=== PATIENT | female | born 1945 | race Caucasian/White ===

== ENCOUNTER 2020-09-16 10:29 | Observation (INO) | payer OTHER, SELFPAY ==
[2020-09-16] VITALS (8 sets, daily range): BP systolic 104–170; BP diastolic 39–65; PULSE 54–67; RESP 16–21; TEMP 36.5–36.7; O2SAT 93–99; BMI 25.7; BMI 24.9
--- NOTE | ~2020-09-16 | CT_ITS ---
EXAMINATION: CT brain wo con EXAM DATE: 09/16/2020 11:21 INDICATION: Syncope. Hypotensive. TECHNIQUE: Spiral CT of the head was performed without contrast. Axial, coronal and sagittal images were reviewed. The dose-length product (DLP) for this examination was 605.33 mGy-cm. The exposure w as tailored according to patient size, and iterative reconstruction (ASIR) was used as additional dos e reduction technique. Comparison is made to prior examination from 09/15/2016. FINDINGS: Compared to 2017, both of the superior ophthalmic veins have dilated from being about 1 mm in caliber to about 5 mm in caliber (typically upper limits of normal considered less than 3 mm). Non specific, but could indicate increased pressure from carotid cavernous fistula. There is no acute intraparenchymal hemorrhage. No evidence of intraparenchymal brain mass lesion. N o evidence of acute infarction. Please note that initial head CT has limited sensitivity for small o r acute infarctions. There is mild periventricular and subcortical hypodensity, nonspecific but proba mariah related to small vessel ischemic disease. There is mild prominence of the sulci and ventricles related to cerebral atrophy. There is intracranial carotid arteriosclerosis. There are no extra-ax ial collections. There is no mass effect or midline shift. Patient has had bilateral ocular lens yo rgery. Soft tissue is unremarkable. The visualized sinuses and mastoid air cells are well aerated. IMPRESSION: 1. No acute intracranial findings. 2. Chronic age related findings. 3. Interval development of enlarged superior ophthalmic veins bilaterally, raises possibility of car otid-cavernous fistula, probably more likely indirect type. Diagnosis would likely require catheter-b ased Cerebral angiogram. Reviewed, dictated and finalized at location A. IMPRESSION: 1. No acute intracranial findings. 2. Chronic age related findings. 3. Interval development of enlarged superior ophthalmic veins bilaterally, serrano ses possibility of carotid-cavernous fistula, probably more likely indirect typ e. Diagnosis would likely require catheter-based Cerebral angiogram.
--- NOTE | ~2020-09-16 | US_ITS ---
EXAMINATION: US carotid duplex BI DATE: 09/16/2020 17:58 INDICATION: Transient alteration of awareness TECHNIQUE: Grayscale, color Doppler, and pulsed Doppler images of the cervical carotid arteries were obtained. The degree of vessel stenosis is placed in one of the following categories: normal, <50%, 5 0-69%, >=70% but less than near-occlusion, near-occlusion, or total occlusion. Note that percent sten osis relative to normal distal artery lumen diameter is indirectly measured from velocity measurement s as described by Eamon, et al. Radiology 2003; 229:340-346. COMPARISON: None. FINDINGS: RIGHT: The right common carotid artery (CCA) peak systolic velocity (PSV) is 82 cm/s. The right internal car otid artery (ICA) PSV is 58 cm/s. The right ICA end-diastolic velocity (EDV) is 14 cm/s. The right IC A/CCA PSV ratio is 0.7. Grayscale and color Doppler images yield an estimate of less than 50% diamete r reduction from plaque in the ICA. The external carotid artery (ECA) PSV is 99 cm/s. There is antegr opal flow in the right vertebral artery. LEFT: The left CCA PSV is 80 cm/s. The left ICA PSV is 72 cm/s. The left ICA EDV is 16 cm/s. The left ICA/C CA PSV ratio is 0.9. Grayscale and color Doppler images yield an estimate of less than 50% diameter r eduction from plaque in the ICA. The ECA PSV is 75 cm/s. There is antegrade flow in the left vertebra l artery. IMPRESSION: 1. <50% stenosis in the right internal carotid artery. 2. <50% stenosis in the left internal carotid artery. Reviewed, dictated and finalized at location A.
--- NOTE | ~2020-09-16 | XR_ITS ---
EXAMINATION: XR chest 1V portable DATE: 09/16/2020 11:52 INDICATION: Syncope. Vomiting. TECHNIQUE: frontal view of the chest was obtained. COMPARISON: Chest CT dated 09/16/2020 FINDINGS: Mild left basilar atelectasis. No other airspace opacities, pulmonary edema, pleural effusion or pneu mothorax. The cardiomediastinal silhouette is normal. Visualized bones and soft tissues are unremarka ble. Prominent costochondral calcifications. IMPRESSION: 1. Mild left basilar atelectasis. Reviewed, dictated and finalized at location B.
--- NOTE | ~2020-09-16 | MR_ITS ---
EXAMINATION: MR brain/brain stem wo/w con DATE: 09/16/2020 17:46 INDICATION: Dizziness. TECHNIQUE: Magnetic resonance imaging (MRI) of the brain and brainstem was performed without and with 10 mL MultiHance intravenous contrast. Sequences included sagittal and axial T1-weighted FSE, axial diffusion-weighted FS EPI, axial T2*-weighted GRE, axial T2-weighted FLAIR Propeller, and axial T2-we ighted Propeller. Postcontrast sequences included axial and coronal T1-weighted FSE. Apparent diffusi on coefficient (ADC) maps were created. COMPARISON: Brain MRI 09/15/2016, head CT 09/16/2020 FINDINGS: There are scattered areas of nonspecific increased T2-weighted signal intensity in the cere bral white matter. There is no intracranial hemorrhage, acute infarction, or abnormal intracranial ma ss lesion. The ventricles are normal in size. There is a small mucous retention cyst in left maxillar y sinus. The mastoid air cells are normal. There are likely changes of ocular lens replacement surger ies. IMPRESSION: 1. Stable mild nonspecific cerebral white matter disease, which likely represents chronic small vesse l ischemic disease. Reviewed, dictated and finalized at location A. IMPRESSION: 1. Stable mild nonspecific cerebral white matter disease, which likely represen ts chronic small vessel ischemic disease.
--- NOTE | ~2020-09-16 | CT_ITS ---
EXAMINATION: CTA chest PE protocol DATE: 09/16/2020 11:21 INDICATION: Syncope. Hypotension. TECHNIQUE: Computed tomography angiography (CTA) of the chest was performed with 100 mL Omnipaque-350 intravenous contrast timed to evaluate the pulmonary arteries. Coronal maximum intensity projection 3D-reconstructions were created by the technologist. Automated exposure control and iterative reconst ruction technique were employed. The dose-length product was 314.29 mGy-cm. COMPARISON: None. FINDINGS: There is mild atelectasis bilaterally. Calcified right lung nodules and calcified right hil ar lymph nodes are consistent with old granulomatous disease. No pleural effusion. The heart size is normal. There are coronary artery calcifications. No pericardial effusion. There is no pulmonary embo willow. There are cysts in the liver measuring up to 4.3 cm. Calcifications in the liver and spleen are consistent with old granulomatous disease. There are hemangiomas in T2, T6, T7, and T10 vertebral bod ies. IMPRESSION: 1. No pulmonary embolus. Reviewed, dictated and finalized at location A. IMPRESSION: 1. No pulmonary embolus.
--- NOTE | 2020-09-16 10:35 | ED.SYNCOPE ---
HPI - Syncope General Chief Complaint: Syncope Stated Complaint: syncope Time Seen by Provider: 09/16/20 10:31 Source: EMS Mode of arrival: EMS Limitations: altered mental status History of Present Illness HPI narrative: Patient is a 75-year-old female, who presents for evaluation of witnessed syncopal event. Patient was ambulating facility when she was noted by witnesses to pass out and lose consciousness. Patient reportedly was diaphoretic and unwell appearing when EMS arrived. Fingerstick glucose appropriate greater than 110. Patient was noted to be mildly bradycardic, mildly hypotensive and somewhat confused. No seizure activity was noted. In route, patient had another syncopal event while on the stretcher in which she was unconscious and unresponsive for approximately 30 seconds. Again, no seizure activity was noted by EMS personnel. Patient was given IV fluids and transported to our facility. Here patient is awake, vomiting. She is alert to person and place. Is unable to provide any other details. She is moving all extremities on command. Related Data Allergies Allergy/AdvReac Type Severity Reaction Status Date / Time nitrofurantoin Allergy Severe SHOCK Verified 02/19/20 13:05 Sulfa (Sulfonamide Allergy Unknown Unknown Verified 02/19/20 13:05 Antibiotics) Review of Systems Review of Systems: ROS unobtainable: Yes unobtainable due to mental status PMFSH Past Medical History Medical History (Updated 09/16/20 @ 13:43 by Trinity Quinn MD) Cognitive decline Dyslipidemia Hypovitaminosis D IFG (impaired fasting glucose) Onychomycosis Seasonal allergies Family History Family History (Updated 12/22/18 @ 07:42 by DOCTOR UNKNOWN) Father Family history of heart disease in male family member before age 55 Patient's father is , Onset Age: 72 Mother Patient's mother is , Onset Age: 92 Social History Social History Smoking status: Never smoker Alcohol intake: never Exam Narrative: Exam Narrative: GENERAL: Awake, alert, confused HEAD: Normocephalic, atraumatic. EYES: 2+ PERRLA and EOMI with horizontal nystagmus, non direction changing ENT: Nares clear, no rhinorrhea or epistaxis. Mucous membranes dry NECK: Supple. CHEST: No respiratory distress, breathing even and non labored HEART:Bradycardic rate, sinus rhythm ABDOMEN:Non distended, non tender EXTREMITIES: Normal range of motion. No edema. SKIN: Pale, cool, dry, no rash. NEURO:No focal deficits. Alert and oriented x3, EOMs intact without nystagmus. No facial droop/asymmetry noted bilaterally. Grimace intact. Intact sensation in face. Shoulder shrug intact. Strength 5/5 bilateral upper extremities. Strength 5/5 bilateral lower extremities. Cannot complete heel to dutton or finger to nose testing at this time. Course Vital Signs Vital signs: Vital Signs Pulse Rate 54 L 09/16/20 10:37 Respiratory Rate 21 H 09/16/20 10:37 Blood Pressure 115/56 L 09/16/20 10:37 Pulse Oximetry 93 09/16/20 10:37 Pulse Rate 67 09/16/20 13:15 Respiratory Rate 16 09/16/20 13:15 Blood Pressure 170/65 H 09/16/20 13:15 Pulse Oximetry 97 09/16/20 13:15 MDM - Syncope MDM Narrative Medical decision making narrative: Patient presented for evaluation of syncopal event. At the time of assessment, patient is vomiting, able to state her name that she is at the hospital, otherwise is a bit lethargic and slightly confused. She is denying any pain. She is reporting some dizziness. Laboratory results are reassuring. Imaging is notable for an incidental finding on CT head which I did speak with Dr. Carlson about. This would not be the cause of any acute syncope there is not appear to be any aneurysm not, no intracranial hemorrhage. This is something that the patient will need to follow-up with neuroradiology regarding as an outpatient. Considered posterior stroke ronald
--- NOTE | 2020-09-16 10:52 | PC.NURSE ---
EDP at bedside, vorb 4mg Zofran IVP, coroner/medical examiner.
--- NOTE | 2020-09-16 10:55 | ECG_ITS ---
Measurements Intervals [place] Rate: 58 P: 61 [place]: 147 QRS: 26 QRSD: 101 T: 74 QT: 399 QTc: 392 Interpretive Statements SINUS BRADYCARDIA ATRIAL PREMATURE COMPLEXES POSSIBLE LEFT ATRIAL ENLARGEMENT INCOMPLETE RIGHT BUNDLE BRANCH BLOCK BORDERLINE ST-T WAVE ABNORMALITY- HIGH LATERAL LEADS BASELINE ARTIFACT- II, III, AVR, AVF, V1, V3-V6 BORDERLINE ECG Electronically Signed On 09-16-2020 11:01:13 CDT by Kong Nance D.O.
--- NOTE | 2020-09-16 11:00 | PC.NURSE ---
Pt taken to CT on monitor
[2020-09-16 11:16] LABS: Estimated Glomerular Filt Rate > 60
[2020-09-16 11:17] LABS: Basophils Percent Auto 0.3 % (0.2-1.2); Eosinophils Absolute Auto 0.1 K/mm3 (0-0.3); Eosinophils Percent Auto 0.8 % (0-4.4); Hematocrit 37.6 % (37.0-47.0); Hemoglobin 12.4 g/dL (12.0-15.0); Immature Granulocyte Absolute 0.01 K/mm3 (0.00-0.031); Immature Granulocyte Percent A 0.2 % (0-0.5); Lymphocytes Percent Auto 42.4 % (18.3-44.2); Mean Corpuscular Hemoglobin 30.8 pg (26-34); Mean Corpuscular Volume 93.5 fl (80-100); Mean Platelet Volume 10.5 fl (7.4-10.4); Monocytes Absolute Auto 0.5 K/mm3 (0.1-0.6); Neutrophils Absolute Auto 3.2 K/mm3 (1.3-6.7); Neutrophils Percent Auto 48.3 % (45.5-73.1); Platelet Count Result 165 k/mm3 (150-375); Red Blood Count 4.02 M/mm3 (4.2-5.4); Red Cell Distribution Width 12.6 % (11.5-14.5); White Blood Count 6.6 K/mm3 (4.5-10.0)
--- NOTE | 2020-09-16 11:18 | PCRCNOTE ---
PT N/A AT 1100 AND 1120 PT IS GONE FOR TESTING XRAY AND CAT SCAN.ABG'S DELAYED
--- NOTE | 2020-09-16 11:20 | PC.NURSE ---
Pt returned from CT. Bedside Report given to NELLA Foreman
[2020-09-16 11:24] LABS: Lactic Acid Reflex 1.4 mmol/L (0.7-2.1)
[2020-09-16 11:24] LABS: Glucose Point of Care 114 (65-105)
[2020-09-16 11:26] LABS: Ammonia < 9 umol/L (9-30); Partial Thromboplastin Time 26.3 SECONDS (22.3-36.8)
[2020-09-16 11:28] LABS: D Dimer 0.33 ug/mL (<0.48)
[2020-09-16 11:28] LABS: Alveolar/Arterial O2 Gradient 34.9 mmHg; Base Excess ABG -4.3 mEq/l (+/-2.0); Carboxyhemoglobin 0.1 % THb (0-2.0); Fractional Inspired Oxygen 21 %; HCO3 ABG 22.6 mEq/l (22.0-26.0); Methemoglobin ABG 0.4 %THb (0-1.5); Oxygen Content ABG 14.6 %vol (16.0-22.0); Oxyhemoglobin 84.9 % THb (90.0-100.0); PCO2 ABG 48.8 mmHg (35.0-45.0); PO2 ABG 56.4 mmHg (80.0-100.0); PO2 FiO2 Ratio Arterial Blood 2.69 %; Reduced Hemoglobin 14.6 %THb (0-5.0); Total Hemoglobin 12.2 g/dL (12.0-18.0)
[2020-09-16 11:29] LABS: pH ABG 7.283 (7.350-7.450)
[2020-09-16 11:30] LABS: Device ROOM AIR; Modified Allen's Test Pass; Oxygen Saturation ABG 85.6 % (95.0-100.0); Site Drawn RIGHT RADIAL
[2020-09-16] MEDS: SODIUM CHLORIDE 0.9% IV 1,000 ML 999 ML IV CONT ×2 (11:31→12:01)
[2020-09-16] MEDS: ONDANSETRON INJ 4 MG/2 ML VIAL (11:31)
[2020-09-16 11:44] LABS: Alanine Aminotransferase 14 U/L (4-35); Albumin Level 3.5 g/dL (3.5-5.1); Alkaline Phosphatase 69 U/L (38-126); Anion Gap 3 mmol/L (8-16); Aspartate Amino Transferase 25 U/L (14-36); Bilirubin,Total 1.1 mg/dL (0.2-1.3); Blood Urea Nitrogen 20 mg/dL (7-17); CRP < 0.5 mg/dL (<1.0); Calcium 8.5 mg/dL (8.4-10.2); Carbon Dioxide 28 mmol/L (22-30); Chloride 107 mmol/L (98-107); Estimated Glomerular Filt Rate > 60; Glucose 134 mg/dL (65-105); Potassium 3.8 mmol/L (3.4-5.0); Sodium 138 mmol/L (137-145)
[2020-09-16 12:00] LABS: NT Pro B Type Natriuretic Pept 87 PG/ML (5-100); Troponin I < 0.012 ng/mL (0.000-0.034)
[2020-09-16] MEDS: METOCLOPRAMIDE HCL INJ 10 MG/2 ML VIAL IV PUSH (12:02)
[2020-09-16 12:17] LABS: Add Urine Microscopic? YES; Appearance Urine Cloudy (Clear); Bilirubin Urine Negative (Negative); Blood Urine Negative (Negative); Color Urine Straw (Yellow); Glucose Urine UA Negative (Negative); Ketones Urine Negative (Negative); Leukocyte Esterase Ur 2+ LEU/UL (Negative); Nitrate Urine Negative (Negative); Protein Urine Negative (Negative); RBC Urine 0-2 /hpf (0-2); Specific Grav Ur 1.025 (1.001-1.035); Squamous Epithelial Cell Urine Many /hpf (Few); Urobilinogen Urine Negative mg/dL (<2.0)
[2020-09-16] MEDS: MECLIZINE HCL 25 MG TABLET PO (12:26)
--- NOTE | 2020-09-16 14:08 | PC.NURSE ---
Called to give report on pt. Was told by Srinath that RN was in another pt room and would call me when she was done,
--- NOTE | 2020-09-16 14:30 | PM.IMHP ---
H&P: HPI History of Present Illness Date/Time: 09/16/20 14:30 Chief Complaint: Syncopal episode. Narrative: This is a fairly healthy 75-year-old female with dyslipidemia who presented to the emergency department earlier today via EMS for evaluation after a syncopal episode. She had her 2nd COVID vaccination yesterday and aside from a mild sore arm she has been doing well. 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 She did not have much to eat or drink this morning and later on in the morning she began feeling unwell with generalized malaise, profound weakness, tingling in her legs, and dizziness. She lay her head on the table as she thought she was going to pass out and reportedly lost consciousness for about 30 seconds. On EMS arrival she was pale and diaphoretic and she lost consciousness again for approximately 10 seconds when they transferred her to the stretcher. Upon waking she complained of nausea and had 2 episodes of emesis. She was noted to be bradycardic on the monitor with low blood pressures (exact numbers not documented) and a random glucose of 138. Her heart rate has been in the 50s to 60s with systolic blood pressures in the 90s to low 100s, which are pretty typical numbers for the patient. At the time of my evaluation she has a mild pressure-like headache in the frontal region but she has no other complaints. Specifically she denies having chest pain, pleuritic pain, or palpitations today. No shortness of breath. She has not taken any new medication recently. No dysuria or diarrhea. Of note her brain CT showed interval development of enlarged superior ophthalmic veins bilaterally, raises possibility of carotid-cavernous fistula, probably more likely indirect type. Upon speaking with Dr. Carlson (radiology), this would not be the cause of her syncope and he sees no evidence of aneurysm or bleed on imaging. He recommends outpatient neuro radiology follow-up for likely catheter-based Cerebral angiogram. Review of Systems Review of Systems: Narrative: Twelve systems were reviewed with pertinent positives and negatives as per HPI. No recent cold or flu symptoms. She received her 2nd COVID vaccination does yesterday morning at 09:00 and only has a mild sore arm. She has not had fever, chills, or sweats. No acute auditory or visual changes. She denies focal weakness and paresthesias though she did have some tingling in her legs prior to her 1st syncopal episode. No recent chest discomfort however she will have occasional self-limiting midsternal chest heaviness and has noticed periods of shortness of breath with exertion when she would normally not feel short of breath in those circumstances. Again she has not had any of these symptoms for quite some time. No orthopnea or PND. No lower extremity edema. No history of DVT or PE. Except as documented all other systems were reviewed and are negative. [facility] Past Medical History Medical History Cognitive decline Dyslipidemia Hypovitaminosis D Impaired fasting glucose Onychomycosis Seasonal allergies Surgical History Surgical History (Updated 09/17/20 @ 00:30 by Mary Kate Quesada PA-C) History of cataract extraction History of hysteroscopy With D and C and polypectomy, benign pathology. Family History Family History Father Family history of heart disease in male family member before age 55 Patient's father is , Onset Age: 72 Mother Patient's mother is , Onset Age: 92 Social History Social History Social History: Surrogate decision maker: Angel Orozco, . Code status: Full code. Smoking status: Never smoker Alcohol intake: current Drinks per week: 1 Substance use: never Ad
--- NOTE | 2020-09-16 17:57 | ADMGEN ---
This patient, Greta Orozco, was admitted to [facility] Surg Room 305-01 at 1448. Patient/family oriented to hospital policies and general routines including ID bracelet, bed and alarms, visiting hours, pain management, procedures, bathroom and other care routines, personal items, smoking policy, room service/diet, and visiting hours. Information on how to activate the Rapid Response Team has been discussed. Patient/Family are encouraged to report perceived risks to care and to ask questions if they do not understand what they are told or what they should do.
[2020-09-16 18:14] LABS: Alveolar/Arterial O2 Gradient 25.9 mmHg; Base Excess ABG -1.3 mEq/l (+/-2.0); Carboxyhemoglobin 0.4 % THb (0-2.0); Device ROOM AIR; Fractional Inspired Oxygen 21 %; HCO3 ABG 23.8 mEq/l (22.0-26.0); Methemoglobin ABG 0.2 %THb (0-1.5); Modified Allen's Test Pass; Oxygen Content ABG 18.3 %vol (16.0-22.0); Oxygen Saturation ABG 94.6 % (95.0-100.0); Oxyhemoglobin 93.6 % THb (90.0-100.0); PCO2 ABG 41.6 mmHg (35.0-45.0); PO2 FiO2 Ratio Arterial Blood 3.52 %; Reduced Hemoglobin 5.8 %THb (0-5.0); Site Drawn LEFT RADIAL; Total Hemoglobin 13.9 g/dL (12.0-18.0); pH ABG 7.376 (7.350-7.450)
[2020-09-16] MEDS: SIMVASTATIN 20 MG TABLET PO (21:40)
[2020-09-17] VITALS (12 sets, daily range): BP systolic 95–121; BP diastolic 42–52; PULSE 53–70; RESP 16–18; TEMP 36.7–36.9; O2SAT 94–100
[2020-09-17 06:20] LABS: Hematocrit 36.4 % (37.0-47.0); Hemoglobin 12.1 g/dL (12.0-15.0); Mean Corpuscular HGB Conc 33.2 g/dl (32-36); Mean Corpuscular Hemoglobin 31.3 pg (26-34); Mean Corpuscular Volume 94.3 fl (80-100); Mean Platelet Volume 10.9 fl (7.4-10.4); Platelet Count Result 143 k/mm3 (150-375); Red Blood Count 3.86 M/mm3 (4.2-5.4); Red Cell Distribution Width 12.8 % (11.5-14.5); White Blood Count 5.5 K/mm3 (4.5-10.0)
[2020-09-17 06:37] LABS: Hemoglobin A1C 5.6 % (<5.7)
[2020-09-17 06:39] LABS: Anion Gap 2 mmol/L (8-16); Blood Urea Nitrogen 11 mg/dL (7-17); Calcium 8.4 mg/dL (8.4-10.2); Carbon Dioxide 29 mmol/L (22-30); Chloride 108 mmol/L (98-107); Estimated CRCL calculation 45 ml/min; Estimated Glomerular Filt Rate > 60; Glucose 88 mg/dL (65-105); Magnesium 1.9 mg/dL (1.6-2.3); Potassium 4.1 mmol/L (3.4-5.0); Sodium 139 mmol/L (137-145)
[2020-09-17 07:11] LABS: Thyroid Stimulating Hormone Reflex 0.463 uIU/mL (0.465-4.68)
--- NOTE | 2020-09-17 08:59 | WPDNEURCNPN ---
Consult date: 09/17/20 Time Seen: 08:30 HPI: Greta Orozco is a 75 year old female 75 years old lady has been admitted to [facility] for the complaints of syncopal episode she was brought to the emergency room by the EMS reportedly she had the 2nd COVID vaccination day before, he developed mildly sore arm but when she woke up at 4:30 a.m. 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 She thought she was going to pass out and reportedly lost consciousness for about 30seconds on arrival in the emergency room she was diaphoretic and became unconscious again for about 10seconds Gloria transfer her to the stretcher subsequent she complained of nausea and had 2 episodes of vomiting he was noted to be bradycardiac on the monitor with low blood pressure and random glucose of 138 heart rate was between 50s and 60s systolic blood pressure in the 90s to low 100s the time she was evaluated by the [facility] physician on the floor she was complaining of headache in the frontal area but had no other complaints. She does have ongoing history of 1. Hypo vitamin 0cc D impaired fasting glucose and cognitive decline. Evaluation documented the normal routine lab, abnormal CT scan with the possibility of interval development of enlarged superior ophthalmic veins bilaterally raising the possibility of carotid cavernous fistula negative ,CTA of the chest, normal carotid Doppler studies, and normal MRI of the brain Review of Systems Review of Systems: All systems reviewed & are unremarkable except as noted in HPI and below PMFSH Past Medical History Medical History Cognitive decline Dyslipidemia Hypovitaminosis D Impaired fasting glucose Onychomycosis Seasonal allergies Surgical History Surgical History (Updated 09/17/20 @ 00:30 by Mary Kate Quesada PA-C) History of cataract extraction History of hysteroscopy With D and C and polypectomy, benign pathology. Family History Family History Father Family history of heart disease in male family member before age 55 Patient's father is , Onset Age: 72 Mother Patient's mother is , Onset Age: 92 Social History Social History Social History: Surrogate decision maker: Angel Orozco, . Code status: Full code. Smoking status: Never smoker Alcohol intake: current Drinks per week: 1 Substance use: never Additional living arrangements comments: Resides in [place] with her . Additional occupation/education comments: Retired. Gender identity (if verbalized by the patient): Female Spiritual care concerns: No Meds Home Medications and Allergies Home Medications Medication Instructions Recorded Confirmed Type cholecalciferol (vitamin D3) 1,250 50,000 unit PO WEEKLY #12 cap 03/31/20 09/16/20 Rx mcg (50,000 unit) capsule simvastatin 20 mg PO HS 09/16/20 09/16/20 History Allergies Allergy/AdvReac Type Severity Reaction Status Date / Time nitrofurantoin Allergy Severe SHOCK Verified 02/19/20 13:05 Sulfa (Sulfonamide Allergy Unknown Rash Verified 09/16/20 15:26 Antibiotics) Vital Signs Vital Signs - 24 hr 09/16/20 10:37 09/16/20 10:58 09/16/20 11:00 Temperature Pulse Rate 54 L 56 L 58 L Respiratory Rate 21 H 20 Blood Pressure 115/56 L 119/56 L Pulse Oximetry 93 99 09/16/20 13:15 09/16/20 15:52 09/16/20 16:00 Temperature 36.7 C Pulse Rate 67 64 61 Respiratory Rate 16 18 Blood Pressure 170/65 H 116/47 L Pulse Oximetry 97 97 09/16/20 20:00 09/16/20 21:45 09/17/20 00:00 Temperature 36.5 C Pulse Rate 59 L 57 L 54 L Respiratory Rate 16 Blood Pres
[2020-09-17 09:32] LABS: Total Triiodothyronine (T3) 0.93 NG/ML (0.97-1.69)
--- NOTE | 2020-09-17 15:00 | PM.DS ---
DS: Admitting Diagnosis Admitting Diagnosis Admitting Diagnosis: syncope DS: Discharge Diagnosis Discharge Diagnosis (1) Syncope: Code(s): R55 - Syncope and collapse Status: Acute Assessment and Plan: Vasovagal syncope seems most likely given prodrome and resolution of symptoms. Tele showed no blocks, missed beats, or arrhythmias. Carotid doppers <50% bilaterally, MRI neg for acute pathology and Echocardiogram is detailed below but does not show any cause for concern for this syncope. No abnormalities noted on physical exam. Pt educated that this was likely vasovagal with vertigo. She was educated to come back to the ER if this re-occurs. Echo: 1. Complete two-dimensional, color flow and Doppler transthoracic echocardiogram is performed. 2. Left ventricular systolic function is hyperdynamic, estimated at >70%. 3. There is no increased left ventricular wall thickness. 4. The left ventricular diastolic function is grade II diastolic dysfunction. 5. Left atrial chamber dimension is mildly enlarged. 6. Right atrial chamber dimension is mildly enlarged. 7. There is mild tricuspid valve regurgitation. 8. Mild pulmonary hypertension, estimated pulmonary arterial systolic pressure is 37 mmHg. (2) Bradycardia: Code(s): R00.1 - Bradycardia, unspecified Status: Acute Assessment and Plan: Patient was bradycardic after her syncopal episode which suggests possible vasovagal syncope although she states her baseline heart rate seems to be somewhere in the 50s to 60s. 24 hour tele monitor does not show any significant bradycardia or abnormalities. No CP, passing out, or weakness during her stay. She did mention about 6 months ago she felt like there was a brief elephant sitting on her chest but has not returned in over 6 months. I spoke to her about following up with her pcp for a stress test and to come back to the ER if this reoccurs. . (3) Abnormal brain CT: Code(s): R90.89 - Other abnormal findings on diagnostic imaging of central nervous system Status: Acute Assessment and Plan: Brain CT shows the interval development of enlarged superior ophthalmic veins bilaterally, raises possibility of carotid-cavernous fistula, probably more likely indirect type. Diagnosis would likely require catheter-based Cerebral angiogram. After discussions with the radiologist by previous provider, he does not feel that this has anything to do with her syncopal episode and can be followed up with Neuroradiology as an outpatient. I spoke with the pt about following up with this and she agreed to talk to her pcp about this. (4) Arterial blood gas abnormality: Code(s): R79.81 - Abnormal blood-gas level Status: Acute Assessment and Plan: Initial abg worrisome but had elevated reduced hemoglobin and was redrawn which improved. (5) Dyslipidemia: Code(s): E78.5 - Hyperlipidemia, unspecified Status: Acute Assessment and Plan: Continue statin. LFTs within normal limits. DS: Summary Hospital Course Hospital Course: Pt is a 75 y/o who presented to the ED for syncopal episode. Pt states she was not feeling well and started feeling weak and dizzy and needing to put her head on the desk. When she did, she had LOC and felt very weak after she came to. She had no loss of bowel or bladder dysfunction or involuntary movements. Vitals in the ER were pulse 54, respiratory rate 21, blood pressure 115/56, pulse ox 93 on room air. CBC within normal limits. CMP relatively normal. Initial troponin negative and no further troponins indicated. EKG showed sinus bradycardia, atrial premature complexes, and replete right bundle branch, proximal left atrial enlargement. Of enlarged superior ophthalmic veins bilaterally which raises the possibility of carotid cavernosus fistula. Admitting provider and radiology spoke about this finding and they do not believe it wou
--- NOTE | 2020-09-17 15:30 | ECHO_ITS ---
Patient Info Name: Greta Orozco Age: 75 years : 1945 Gender: Female Ht: 64 in Wt: 135 lbs BSA: 1.67 m2 HR: 60 bpm BP: 101 / 46 mmHg Heart Rhythm: Sinus Rhythm Technical Quality: Good Exam Date: 09/17/2020 10:56 AM Exam Location: [facility] Pulmonary Exam Room: 305 Patient Status: Inpatient Admit Date: 09/16/2020 Staff Ordering Physician: Mary Kate Quesada PA-C Lidder: Socorro Osullivan RDCS Attending Provider: Colleen Segura PA-C Referring Physician: Dipak ALARCON; Exam Type: CA echo doppler color flow Study Info Indications - syncope Complete two-dimensional, color flow and Doppler transthoracic echocardiogram is performed. Summary 1. Complete two-dimensional, color flow and Doppler transthoracic echocardiogram is performed. 2. Left ventricular systolic function is hyperdynamic, estimated at >70%. 3. There is no increased left ventricular wall thickness. 4. The left ventricular diastolic function is grade II diastolic dysfunction. 5. Left atrial chamber dimension is mildly enlarged. 6. Right atrial chamber dimension is mildly enlarged. 7. There is mild tricuspid valve regurgitation. 8. Mild pulmonary hypertension, estimated pulmonary arterial systolic pressure is 37 mmHg. Left Ventricle Left ventricular chamber dimension is normal. Left ventricular systolic function is hyperdynamic, estimated at >70%. There is no increased left ventricular wall thickness. The left ventricular diastolic function is grade II diastolic dysfunction. Right Ventricle Right ventricular chamber dimension is normal. Right ventricular systolic function is normal. Left Atria Left atrial chamber dimension is mildly enlarged. Right Atria Right atrial chamber dimension is mildly enlarged. Aortic Valve The aortic valve is trileaflet. There is mild aortic valve sclerosis. There is no aortic valve stenosis. There is no aortic valve regurgitation. Pulmonic Valve The pulmonic valve is not well visualized. There is trace pulmonic regurgitation. Mitral Valve The mitral valve has thickened leaflets. There is trace mitral valve regurgitation. The mitral valve annulus is mildly calcified. Tricuspid Valve The tricuspid valve leaflets are normal. There is mild tricuspid valve regurgitation. Mild pulmonary hypertension, estimated pulmonary arterial systolic pressure is 37 mmHg. Pericardium/Pleural The pericardium appears normal. There is trivial pericardial effusion. Inferior Vena Cava Normal inferior vena cava with >50% collapse upon inspiration consistent with normal right atrial pressure, 5 mmHg. Aorta The aortic root size at the sinus of Valsalva is normal. Left Ventricular Outflow Tract Name Value Normal LVOT 2D LVOT Diameter 2.0 cm LVOT Doppler LVOT Peak Gradient 6 mmHg LVOT Mean Gradient 4 mmHg LVOT VTI 27 cm LVOT VTI/AV VTI Ratio 0.8 LVOT Stroke Volume 81 ml LVOT CO 16.8 l/min
--- NOTE | 2020-09-17 16:33 | PM.IMPN ---
Subjective Date/time seen: 09/17/20 16:33 Objective Data Vital Signs Vital Signs: Vital Signs - 24 hr 09/16/20 20:00 09/16/20 21:45 09/17/20 00:00 Temperature 97.7 F Pulse Rate 59 L 57 L 54 L Respiratory Rate 16 Blood Pressure 104/39 L Pulse Oximetry 97 95 09/17/20 04:00 09/17/20 06:00 09/17/20 06:05 Temperature 98.1 F Pulse Rate 59 L 53 L 60 Respiratory Rate 16 Blood Pressure 95/48 L 96/42 L Pulse Oximetry 94 09/17/20 06:10 09/17/20 08:00 09/17/20 11:26 Temperature Pulse Rate 58 L 62 Respiratory Rate Blood Pressure 101/46 L Pulse Oximetry 98 09/17/20 12:00 09/17/20 14:00 09/17/20 14:05 Temperature 98.5 F Pulse Rate 64 66 70 Respiratory Rate 18 18 Blood Pressure 119/50 L 121/52 L Pulse Oximetry 99 100 09/17/20 14:10 Temperature Pulse Rate 66 Respiratory Rate 18 Blood Pressure 115/51 L Pulse Oximetry 99 Intake/Output Intake/Output: Intake & Output 09/14/20 09/15/20 09/16/20 09/17/20 23:59 23:59 23:59 23:59 Intake Total 2240 960 Output Total 600 2 Balance 1640 958 Meds/Results Medications: Active Medications Generic Name Dose Route Start Last Admin Trade Name Freq PRN Reason Stop Dose Admin Ergocalciferol 50,000 unit 09/19/20 09:00 Ergocalciferol 50,000 Unit Capsule PO WEEKLY RK Ondansetron HCl 4 mg 09/16/20 12:55 Ondansetron Inj 4 Mg/2 Ml Vial IV PUSH Q4H PRN Nausea Simvastatin 20 mg 09/16/20 21:00 09/16/20 21:40 Simvastatin 20 Mg Tablet PO 20 mg HS RK Administration Radiology Results: ITS Impressions Head CT 09/16/20 11:23 IMPRESSION: 1. No acute intracranial findings. 2. Chronic age related findings. 3. 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 Diagnosis would likely require catheter-based Cerebral angiogram. Chest CTA 09/16/20 11:25 IMPRESSION: 1. No pulmonary embolus. Chest X-Ray 09/16/20 11:53 IMPRESSION: 1. Mild left basilar atelectasis. Carotid Doppler Study 09/16/20 23:24 IMPRESSION: 1. <50% stenosis in the right internal carotid artery. 2. <50% stenosis in the left internal carotid artery. Brain MRI 09/17/20 06:36 IMPRESSION: 1. Stable mild nonspecific cerebral white matter disease, which likely represents chronic small vessel ischemic disease. Labs Labs: Laboratory Results - last 24 hr 09/16/20 09/17/20 09/17/20 18:09 05:33 05:33 WBC 5.5 RBC 3.86 L Hgb 12.1 Hct 36.4 L MCV 94.3 MCH 31.3 MCHC 33.2 RDW 12.8 Plt Count 143 L MPV 10.9 H Puncture Site Left radial ABG pH 7.376 ABG pCO2 41.6 ABG pO2 74.0 L ABG PO2/FiO2 Ratio 3.52 ABG HCO3 23.8 ABG O2 Saturation 94.6 L ABG O2 Content 18.3 ABG Base Excess -1.3 A-a Gradient 25.9 Oxyhemoglobin 93.6 Carboxyhemoglobin 0.4 Methemoglobin 0.2 Reduced Hemoglobin 5.8 H Total Hemoglobin 13.9 O2 Delivery Device Room air O2 Liters/Min Not Reportable FiO2 21 Sodium 139 Potassium 4.1 Chloride 108 H Carbon Dioxide 29 Anion Gap 2 L BUN 11 D Creatinine 0.80 Estim Creat Clear Calc 45 Estimated GFR > 60 Glucose 88 Hemoglobin A1c Calcium 8.4 Magnesium 1.9 TSH (Reflex) Free T4 Total T3 09/17/20 09/17/20 09/17/20 05:33 05:33 05:33 WBC RBC Hgb Hct MCV MCH MCHC RDW Plt Count MPV Puncture Site ABG pH ABG pCO2 ABG pO2 ABG PO2/FiO2 Ratio ABG HCO3 ABG O2 Saturation ABG O2 Content ABG Base Excess A-a Gradient Oxyhemoglobin Carboxyhemoglobin Methemoglobin Reduced Hemoglobin Total Hemoglobin O2 Delivery Device O2 Liters/Min FiO2 Sodium Potassium Chloride Carbon Dioxide Anion Gap BUN Creatinine Estim Crea
== END 2020-09-17 20:30 | disposition home or self-care (01) ==
LOC: ANHED 11:13 → ANH3MEDSUR 13:30
PROVIDERS: Physician Assistant; Admitting Provider Family Medicine; Emergency Provider Emergency Medicine; PCP Internal Medicine; Visit Provider Hospitalist
DX: R55 Syncope and collapse (principal); R00.1 Bradycardia, unspecified; R90.89 Other abnormal findings on diagnostic imaging of central nervous system; R79.81 Abnormal blood-gas level; I65.23 Occlusion and stenosis of bilateral carotid arteries; E86.0 Dehydration; R11.2 Nausea with vomiting, unspecified; I36.1 Nonrheumatic tricuspid (valve) insufficiency; I27.20 Pulmonary hypertension, unspecified; E78.5 Hyperlipidemia, unspecified; E55.9 Vitamin D deficiency, unspecified; Z79.899 Other long term (current) drug therapy
CPT/HCPCS: 36415; 36600; 51701; 70450; 70553; 71045; 71275; 80048; 80053; 81001; 82140; 82375; 82805; 83036; 83050; 83605; 83735; 83880; 84439; 84443; 84480; 84484; 85025; 85027; 85380; 85610; 85730; 86140; 87077; 87086; 87088; 93005; 93306; 93880; 96361; 96374; 96375; 97161; 97165; 99285; A9270; A9577; G0378; J2405; J2765; J7030; Q9967

== ENCOUNTER 2021-04-09 07:47 | Outpatient (CLI) | payer OTHER, SELFPAY ==
--- NOTE | ~2021-04-09 | US_ITS ---
EXAMINATION: US transvaginal DATE: 04/09/2021 08:31 INDICATION: Abnormal uterine bleeding TECHNIQUE: Multiple endovaginal sonographic images of the pelvis were obtained. COMPARISON: 02/22/2015 FINDINGS: The uterus measures 5.2 x 2.8 x 3.8 cm and contains multiple calcifications, likely fibroid s. The endometrial complex measures 6 mm. The left ovary is not definitely visualized however no left adnexal abnormality is seen. The right ovary measures 2.0 x 0.8 x 1.7 cm. There is normal vascular f low in the right ovary. There is no free fluid in the pelvis. IMPRESSION: 1. No sonographic correlate for the patient's symptoms. Reviewed, dictated and finalized at location A.
== END 2021-04-09 07:48 ==
LOC: MICIMG 07:48
PROVIDERS: PCP Family Medicine; Visit Provider Nurse Practitioner Family
DX: N93.9 Abnormal uterine and vaginal bleeding, unspecified (principal)
CPT/HCPCS: 76830

== ENCOUNTER → 2022-07-06 08:07 | Outpatient (CLI) | payer OTHER, SELFPAY ==
--- NOTE | ~2022-07-06 | XR_ITS ---
Clinical Indication: Shortness of breath PA and lateral views of the chest: Comparison: 09/16/2020 Findings: The lungs are clear, without evidence of focal consolidation or pleural effusion. Cardiome diastinal silhouette is within normal limits. Bones and soft tissues are unremarkable. Impression: Normal chest. Reviewed, dictated and finalized at [facility]. [employer] Impression: Normal chest.
== END ==
PROVIDERS: PCP Family Medicine; Visit Provider Family Medicine
DX: R06.02 Shortness of breath (principal)
CPT/HCPCS: 71046

== ENCOUNTER 2023-09-29 13:49 | Outpatient (CLI) | payer OTHER, SELFPAY ==
--- NOTE | ~2023-09-29 | US_ITS ---
EXAMINATION: US pelvic complete w TV DATE: 09/29/2023 14:27 INDICATION: N95.0 - Postmenopausal bleeding TECHNIQUE: Multiple transabdominal and endovaginal sonographic images of the pelvis were obtained. COMPARISON: 04/09/2021, report only. FINDINGS: Uterus: 7.3 x 2.8 x 3.5 cm. Endometrial complex measures 4 mm. Right Ovary: Not visualized. Left Ovary: Not visualized. There is no free fluid in the pelvis. IMPRESSION: Bilateral ovaries not visualized, otherwise unremarkable pelvic sonogram findings. Reviewed, dictated and finalized at location K. IMPRESSION: Bilateral ovaries not visualized, otherwise unremarkable pelvic sonogram yanci gasca
== END 2023-09-29 13:50 ==
LOC: MICIMG 13:50
PROVIDERS: PCP Family Medicine; Visit Provider Obstetrics & Gynecology
DX: N95.0 Postmenopausal bleeding (principal)
CPT/HCPCS: 76830; 76856

== ENCOUNTER 2025-03-11 09:08 | Outpatient (CLI) | payer OTHER, SELFPAY ==
--- NOTE | ~2025-03-11 | NM_ITS ---
EXAMINATION: NM stress w perf spect multi DATE: 03/11/2025 12:06 INDICATION: Chest pain. Bradycardia, unspecified. TECHNIQUE: Rest images were obtained following intravenous administration of 9.8 mCi Tc99m tetrofosmin (Myoview). The patient performed an exercise activity. At peak exercise, 32.0 mCi Tc99m tetrofosmin (Myoview) was administered intravenously, and stress images were obtained. Data was reconstructed into short axis and horizontal and vertical long axis SPECT images. Gated SPECT images were also obtained. COMPARISON: None. FINDINGS: There is no definite reversible or fixed perfusion abnormality to suggest ischemia or infarction. There is no segmental wall motion abnormality. Left ventricular ejection fraction measures >70%. IMPRESSION: 1. No definite ischemia or infarct. 2. Normal left ventricular ejection fraction measuring >70%. Reviewed, dictated and finalized at location E.
--- OUTSIDE RECORDS SUMMARY | 2025-03-11 09:42 | XMS_ITS | Clinical Summary ---
Author Organization [facility] [place] [address] Address [address] [place] [address] Care Team Providers Care Glass Bulb Silverer Name Role Phone Eamon Mata MD Primary Care Provider [phone] Allergies Active Allergy Reactions Criticality Noted Date Comments Nitrofurantoin Anaphylaxis High 08/12/2021 Sulfa (Sulfonamide Antibiotics) Rash Medium 07/2021 Medications biotin 2,500 mcg capsule Take 5,000 mcg by mouth daily Active cholecalciferol (VITAMIN D-3) 5,000 unit tablet Active Active Problems No known active problems Surgical History Surgery Date Site/Laterality Comments HYSTEROSCOPY Medical History Medical History Date Comments Dyslipidemia Family History Medical History Relation Name Comments Heart attack Father Heart disease Father Relation Name Status Comments Father Mother Social History Tobacco Use Types Packs/Day Years Used Date Smoking Tobacco: Never Tobacco Cessation:Counseling Given: Not Answered Personal Safety Answer Date Recorded Getting School Help Needed Not on file 08/13 Comments Unknown Sex and Gender Information Value Date Recorded Sex Assigned at Not on file Legal Sex Female 1:29 PM CDT Gender Identity Not on file Sexual Orientation Not on file Obstetrics History Last Filed Vital Signs Vital Sign Reading Time Taken Comments Blood Pressure 104/68 08/25/2022 9:56 AM CDT Pulse 68 08/25/2022 9:56 AM CDT Temperature 37 C (98.6 F) 03/20/2022 4:39 PM CDT Respiratory Rate 16 03/20/2022 7:00 PM CDT Oxygen Saturation 97% 08/25/2022 9:56 AM CDT Inhaled Oxygen Concentration - - Weight 60.3 kg (133 lb) 08/25/2022 9:56 AM CDT Height 162.6 cm (5' 4) 08/25/2022 9:56 AM CDT Body Mass Index 22.83 08/25/2022 9:56 AM CDT Plan of Treatment Health Maintenance Due Date Last Done Comments Depression Screening 1945 Fall Risk Assessment 1945 Osteoporosis Screening-Bone Density Scan 1945 DTaP/Tdap/Td Vaccine (1 - Tdap) 08/12/1955 Hepatitis B Screening 1962 Zoster Vaccine (1 of 2) 1994 Well Visit 65+ 2009 Pneumococcal vaccine 65+ (2 of 2 - PCV20 or PCV21) 04/25/2021 04/25/2020 Covid-19 Vaccine (3 - season) 02/11/202510/2020, 08/24/2020 Influenza Vaccine (#1) 2025 04/01/[address] [facility] Advance Directives For more information, please contact: [phone] Documents on File Type Date Recorded Patient Recycle Driver Expl anation Power of Cosmetic Sales Assistant 08/25/2022 9:44 AM Care Teams Glass Bulb Silverer Relationship Specialty Start Date End Date Eamon Mata MD PCP - General Family Medicine 06/03/21
--- NOTE | 2025-03-11 09:45 | EST_ITS ---
Patient Info Name: Greta Orozco Age: 79 years : 1945 Gender: Female Ht: 64 in Wt: 135 lbs BSA: 1.67 m2 HR: 51 bpm BP: 145 / 74 mmHg Exam Date: 03/11/2025 9:45 AM Patient Status: O Admit Date: 03/11/2025 Exam Type: CA stress test treadmill w NM A nuclear stress test was performed. Staff Referring Physician: Eamon Mata MD Attending Provider: Eamon Mata MD Exercise Technologist: Irais Sam Exercise Physician: Kong Nance DO Summary 1. 1. Negative Erasmo exercise stress test for ischemic ST changes by ECG criteria. 2. 2. Good functional capacity, achieving 7 METs of workload. 3. 3. Baseline hypertension. 4. 4. Appropriate HR response to exercise. 5. 5. Appropriate HR recovery at 1 minute post exercise. 6. 6. Nuclear scan to follow and will be reported separately. Please correlate with it. 7. 7. Patient informed of the above results. Protocol: Erasmo Stress ECG Details Stage: REST Duration (min): 0 min : 25 sec Speed (mph): 0.0 Grade (%): 0 HR (bpm): 53 SBP (mmHg): --- DBP (mmHg): --- METS: --- Stage: REST Duration (min): 4 min : 15 sec Speed (mph): 0.0 Grade (%): 0 HR (bpm): 58 SBP (mmHg): 145 DBP (mmHg): 74 METS: --- Stage: STAGE 1 Duration (min): 1 min : 0 sec Speed (mph): 1.7 Grade (%): 10 HR (bpm): 89 SBP (mmHg): 145 DBP (mmHg): 74 METS: --- Stage: STAGE 1 Duration (min): 2 min : 0 sec Speed (mph): 1.7 Grade (%): 10 HR (bpm): 103 SBP (mmHg): 145 DBP (mmHg): 74 METS: --- Stage: STAGE 1 Duration (min): 3 min : 0 sec Speed (mph): 1.7 Grade (%): 10 HR (bpm): 110 SBP (mmHg): 180 DBP (mmHg): 70 METS: --- Stage: STAGE 2 Duration (min): 1 min : 0 sec Speed (mph): 2.5 Grade (%): 12 HR (bpm): 123 SBP (mmHg): 180 DBP (mmHg): 70 METS: --- Stage: STAGE 2 Duration (min): 1 min : 40 sec Speed (mph): 2.5 Grade (%): 12 HR (bpm): 132 SBP (mmHg): 180 DBP (mmHg): 70 METS: --- Stage: RECOVERY Duration (min): 0 min : 19 sec Speed (mph): 0.0 Grade (%): 0 HR (bpm): 130 SBP (mmHg): 185 DBP (mmHg): 76 METS: --- Stage: RECOVERY Duration (min): 1 min : 19 sec Speed (mph): 0.0 Grade (%): 0 HR (bpm): 102 SBP (mmHg): 185 DBP (mmHg): 76 METS: --- Stage: RECOVERY Duration (min): 2 min : 19 sec Speed (mph): 0.0 Grade (%): 0 HR (bpm): 82 SBP (mmHg): 185 DBP (mmHg): 76 METS: --- Stage: RECOVERY Duration (min): 3 min : 17 sec Speed (mph): 0.0 Grade (%): 0 HR (bpm): 74 SBP (mmHg): 197 DBP (mmHg): 67 METS: --- Rest HR: 58 bpm Peak HR: 132 bpm Rest Sys BP: 145 mmHg Peak Sys BP: 197 mmHg Max Pred HR: 140 bpm % Max Pred HR: 94 % Target HR: 119 bpm Max RPP: 26,004 bpm*mmHg Burns Score: -7 Termination Reason: Reached target heart rate or workload Cardiac Symptoms: Shortness of breath Max ST Seg Deviation: -2.30 mm Total Time: 4 min : 40 sec Rest Sharma BP: 74 mmHg Peak Sharma BP: 67 mmHg Angina Score: None Total METS: 7.1 Resting ECG Sinus bradycardia. Stress ECG No ST changes. Arrhythmias None. Report Signatures
--- NOTE | 2025-03-11 09:45 | ECHO_ITS ---
Patient Info Name: Greta Orozco Age: 79 years : 1945 Gender: Female Ht: 64 in Wt: 135 lbs BSA: 1.67 m2 HR: 55 bpm BP: 138 / 57 mmHg Technical Quality: Fair Exam Date: 03/11/2025 10:06 AM Patient Status: O Admit Date: 03/11/2025 Exam Type: CA echo doppler color flow Complete two-dimensional, color flow and Doppler transthoracic echocardiogram is performed. Staff Referring Physician: Eamon Mata MD Subsea Engineer: Jolynn Yang Attending Provider: Eamon Mata MD Summary 1. Complete two-dimensional, color flow and Doppler transthoracic echocardiogram is performed. 2. Left ventricular chamber dimension is normal. 3. Left ventricular systolic function is normal, estimated at 65-70. 4. The left ventricular diastolic function is grade I diastolic dysfunction. 5. E/e' 6 is not elevated. 6. Left atrial chamber dimension is mildly enlarged. 7. There is mild aortic valve sclerosis. 8. There is trace mitral valve regurgitation. 9. There is trace tricuspid valve regurgitation. 10. No pulmonary hypertension, estimated pulmonary arterial systolic pressure is 31 mmHg. 11. There is trace pulmonic regurgitation. Left Ventricle E/e' 6 is not elevated. Left ventricular chamber dimension is normal. Left ventricular systolic function is normal, estimated at 65-70. The left ventricular diastolic function is grade I diastolic dysfunction. Right Ventricle Right ventricular chamber dimension is normal. Right ventricular systolic function is normal. Left Atria Left atrial chamber dimension is mildly enlarged. Right Atria Right atrial chamber dimension is normal. Aortic Valve The aortic valve is trileaflet. There is mild aortic valve sclerosis. There is no aortic valve stenosis. There is no aortic valve regurgitation. Pulmonic Valve There is trace pulmonic regurgitation. Mitral Valve There is no mitral valve stenosis. There is trace mitral valve regurgitation. Tricuspid Valve There is trace tricuspid valve regurgitation. No pulmonary hypertension, estimated pulmonary arterial systolic pressure is 31 mmHg. Pericardium/Pleural There is no pericardial effusion. Inferior Vena Cava Normal inferior vena cava with >50% collapse upon inspiration consistent with normal right atrial pressure, 5 mmHg. Aorta The aortic root size at the sinus of Valsalva is normal. Left Ventricular Outflow Tract Name Value Normal LVOT 2D LVOT Diameter 1.8 cm LVOT Doppler LVOT Peak Velocity 117 cm/s LVOT Peak Gradient 5 mmHg LVOT Mean Gradient 3 mmHg LVOT VTI 26 cm LVOT VTI/AV VTI Ratio 0.9 LVOT Stroke Volume 69 ml LVOT CO 4.1 l/min LVOT CI 2.4 l/min/m2 Pulmonic Valve Name Value Normal RVOT Doppler RVOT Peak Velocity 72 cm/s RVOT Peak Gradient 2 mmHg PV Doppler PV Peak Velocity 75 cm/s PV Peak Gradient 2 mmHg Mitral Valve Name Value Normal MV Diastolic Function MV E Peak Velocity 58 cm/s MV A Peak Velocity 71 cm/s MV E/A 0.8 MV Decel Time (PW) 201 ms Tricuspid Valve Name Value Normal TV Regurgitation Doppler TR Peak Velocity 257 cm/s TR Peak Gradient 22 mmHg Estimated PAP/RSVP RA Pressure 5 mmHg <=5 PA Systolic Pressure 31 mmHg <36 RV Systolic Pressure 31 mmHg <36 Aorta Name Value Normal Ascending Aorta Ao Root Diameter (MM) 2.5 cm Ao Root Diam Index (MM) 1.5 cm/m2 Aortic Valve Name Value Normal AV Doppler AV Peak Velocity 143 cm/s AV Peak Gradient 8 mmHg AV Mean Gradient 4 mmHg AV VTI 28 cm AV Area (Cont Eq VTI) 2.4 cm2 >=3.0 AV Area (Cont Eq Aldo) 2.2 cm2 AV DI (Aldo) 0.82 AV Regurgitation 2D LVOT Area 2.7 cm2 Ventricles Name Value Normal LV Dimensions 2D/MM IVS Diastolic Thickness (2D) 0.9 cm 0.6-1.0 IVS Diastole Thickness (MM) 1.0 cm 0.6-0.9 LVID Diastole (2D) 3.8 cm 3.8-5.2 LVID Diastole (MM) 4.2 cm 3.8-5.2 LVIW Diastolic Thickness (2D) 0.8 cm 0.6-0.9 LVIW Diastolic Thickness (MM) 0.8 cm 0.6-0.9 LVID Systole (2D) 2.0 cm 2.2-3.5 LVID Systole (MM) 2.1 cm 2.2-3.5 LVOT Diameter 1.8 cm LV Mass (2D Cubed) 90.92 g 67.00-162.00 LV Mass Index (2D Cubed) 54 g/m2 43-95 Relative Wall Thickness (2D) 0.41 <=0.42 LV Mass (MM Cubed) 117.31 g 67.00-162.00 LV Mass Index (MM Cubed) 70 g/m2 43-95 Relative Wall Thickness (MM) 0.37 LV Fractional Shortening/Ejection Fraction 2D/MM LV Fractional Shortening (2D) 49 % 27-45 LV Fractional Shortening (MM) 51 % 27-45 LV EF (MM Teichholz) 83 % LV EF (2D Teichholz) 81 % LV Diastolic Volume (4C MOD) 51 ml LV EF (4C MOD) 69 % LV Diastolic Volume (2C MOD) 38 ml LV EF (2C MOD) 42 % LV Diastolic Volume (BP MOD) 44 ml 46-106 LV Diastolic Volume Index (BP MOD) 27 ml/m2 29-61 LV Systolic Volume (BP MOD) 20 ml 14-42 LV Systolic Volume Index (BP MOD) 12 ml/m2 8-24 LV EF (BP MOD) 55 % 54-74 LV Diastolic Length (4C) 6.7 cm LV Systolic Length (4C) 6.1 cm LV Stroke Volume (4C MOD) 35 ml Atria Name Value Normal LA Dimensions LA Dimension (MM) 3.3 cm 2.7-3.8 LA Volume (4C A-L) 41 ml LA Volume (BP A-L) 45 ml RA Dimensions RA Systolic Major Nelson Length (4C) 4.5 cm 2.2-2.8 RA Area (4C) 14.6 cm2 <=18.0 Report Signatures
== END 2025-03-11 09:09 | disposition home or self-care (01) ==
PROVIDERS: PCP Family Medicine; Visit Provider Family Medicine
DX: R07.9 Chest pain, unspecified (principal); R00.1 Bradycardia, unspecified; I45.10 Unspecified right bundle-branch block; I51.89 Other ill-defined heart diseases
CPT/HCPCS: 78452; 93017; 93306; A9502